=== PATIENT | female | born 1985 | race Caucasian/White ===

== ENCOUNTER 2017-08-11 14:04 | Emergency (ER) | payer OTHER ==
[~2017-08-11] VITALS: Ht 177.8 cm; Wt 72.6 kg
[2017-08-11] MEDS ORDERED: LIDOCAINE HCL 2% 20 ML VIAL TP ONE (14:45)
--- NOTE | 2017-08-11 14:46 | NUR ---
PT WAS EVALUATED BY DR CASILLAS. DR CASILLAS SUTURED PT'S LACERATION. PT TOLERATED TO PROCEDURE WITHOUT COMPLICATIONS. PT WAS D/C TO HOME. D/C INSTRUCTIONS GIVEN TO THE PT.
[2017-08-11 14:47] VITALS: BP 128/71
== END 2017-08-11 14:48 | disposition home or self-care (01) ==
LOC: ER 14:04
DX: S61.213A Laceration without foreign body of left middle finger without damage to nail, initial encounter (principal); Z79.01 Long term (current) use of anticoagulants; Z79.82 Long term (current) use of aspirin; W26.0XXA Contact with knife, initial encounter; Y93.89 Activity, other specified; Y92.89 Other specified places as the place of occurrence of the external cause; Y99.8 Other external cause status
CPT/HCPCS: A4663

== ENCOUNTER 2017-08-13 11:01 | Emergency (ER) | payer OTHER ==
[~2017-08-13] VITALS: Ht 177.8 cm; Wt 71.7 kg
[2017-08-13] MEDS ORDERED: APIX5TAB PO (11:07)
--- NOTE | 2017-08-13 11:29 | NUR ---
PT IS IN ROOM #2B. DR CYR EVALUATED THE PT.
[2017-08-13] MEDS ORDERED: HYDROCODONE/APAP 5-325MG TABLET PO ONE (11:45)
[2017-08-13] MEDS ORDERED: NEOMY/BACITRA/POLYMYXIN B OINT UD PACKET TP ONE ×2 (11:45→11:47)
[2017-08-13] MEDS ORDERED: HYDROCODONE/APAP 5-325MG TABLET ONE (11:47)
--- NOTE | 2017-08-13 11:49 | NUR ---
PT'S GAUZE DRESSING ON LEFT 3rd FINGER WAS CHANGED BY RN. PT TOLERATED TO PROCEDURE WITHOUT COMPLICATIONS. NO BLEEDING. PT WAS D/C TO HOME. D/C INSTRUCTIONS GIVEN TO THE PT.
[2017-08-13 11:55] VITALS: BP 123/81
== END 2017-08-13 11:56 | disposition home or self-care (01) ==
LOC: ER 11:02
DX: S61.213D Laceration without foreign body of left middle finger without damage to nail, subsequent encounter (principal); X58.XXXD Exposure to other specified factors, subsequent encounter; Z48.01 Encounter for change or removal of surgical wound dressing; Z79.899 Other long term (current) drug therapy
CPT/HCPCS: A4663

== ENCOUNTER 2017-08-23 11:49 | Emergency (ER) | payer BC, OTHER ==
[~2017-08-23] VITALS: Ht 177.8 cm; Wt 70.8 kg
[~2017-08-23 11:49] MED LIST: APIX5TAB PO
--- NOTE | 2017-08-23 13:05 | NUR ---
MSE COMPLETED, DR FAULKNER REMOVED THE SUTURES, I THEN PLACED A NON-ADHIRING DRESSING TO SITE. PT WAS THEN D/C'D HOME, ACI GIVEN.
[2017-08-23 13:08] VITALS: BP 118/74
== END 2017-08-23 13:08 | disposition home or self-care (01) ==
LOC: ER 11:52
DX: S61.213D Laceration without foreign body of left middle finger without damage to nail, subsequent encounter (principal); W26.0XXD Contact with knife, subsequent encounter; Z48.02 Encounter for removal of sutures; Z79.01 Long term (current) use of anticoagulants
CPT/HCPCS: 99281; A4663